=== PATIENT | male | born 1975 | race Caucasian/White ===

== ENCOUNTER 2021-01-13 01:23 | Emergency (ER) | payer OTHER ==
[~2021-01-13] VITALS: Ht 172.7 cm; Wt 65.0 kg
[2021-01-13 01:29] VITALS: BP 116/71
== END 2021-01-13 02:58 | disposition home or self-care (01) ==
LOC: ER 01:24
DX: Z02.89 Encounter for other administrative examinations (principal); R11.0 Nausea; Z72.89 Other problems related to lifestyle
CPT/HCPCS: 99282